=== PATIENT | male | born 1990 | race Caucasian/White ===

== ENCOUNTER 2018-10-29 07:08 | Day surgery (SDC) | payer OTHER ==
[2018-10-29] MEDS ORDERED: CEFAZOLIN 2 GM/50 ML (PMX) 50 ML IVPB (07:30)
[2018-10-29] MEDS: SOD CHLORIDE 0.9% 1,000 ML IV (08:08)
[2018-10-29 08:13] LABS: ADD MAN DIFF? NO
[2018-10-29 08:15] LABS: BASOPHIL # 0.1 10^3/ul (0.0-0.1); BASOPHILS % 0.7 % (0.0-2.0); EOSINOPHILS # 0.1 10^3/ul (0.0-0.5); EOSINOPHILS % 0.7 % (0.0-7.0); HEMATOCRIT 41.9 % (42.0-52.0); HEMOGLOBIN 14.4 g/dl (14.0-18.0); LYMPHOCYTES # 2.5 10^3/ul (0.8-2.9); LYMPHOCYTES % 33.6 % (15.0-51.0); MEAN CORPUSCULAR HEMOGLOBIN 31.9 pg (29.0-33.0); MEAN CORPUSCULAR HGB CONC 34.4 g/dl (32.0-37.0); MEAN CORPUSCULAR VOLUME 92.9 fl (82.0-101.0); MEAN PLATELET VOLUME 9.5 fl (7.4-10.4); MONOCYTE # 0.5 10^3/ul (0.3-0.9); MONOCYTES % 6.4 % (0.0-11.0); NEUTROPHIL # 4.3 10^3/ul (1.6-7.5); NEUTROPHILS % 58.3 % (39.0-77.0); PLATELET COUNT 253 10^3/UL (140-415); RED BLOOD COUNT 4.51 10^6/ul (4.70-6.10); RED CELL DISTRIBUTION WIDTH 12.3 % (11.5-14.5)
[2018-10-29 08:15] LABS: WHITE BLOOD COUNT 7.3 10^3/ul (4.8-10.8)
[2018-10-29 08:33] LABS: INR 0.89; PROTIME 12.2 Sec (11.9-14.9)
[2018-10-29 08:34] LABS: PARTIAL THROMBOPLASTIN TIME 33.7 Sec (23.0-35.0)
[2018-10-29 08:44] LABS: ANION GAP 9 (5-13); BLOOD UREA NITROGEN 14 mg/dl (7-20); CALCIUM 9.3 mg/dl (8.4-10.2); CARBON DIOXIDE 26 mmol/L (21-31); CHLORIDE 109 mmol/L (97-110); CREATININE 0.68 mg/dl (0.61-1.24); Estimated GFR > 60 mL/min (>60); GLUCOSE 101 mg/dl (70-220); SODIUM 144 mmol/L (135-144)
[2018-10-29] MEDS ORDERED: LIDOCAINE 1%/EPI (1:100,000) (MDV) 20 ML (09:29)
[2018-10-29] MEDS ORDERED: BUPIVACAINE 0.5% (SDV) 30 ML INJ (09:29)
[2018-10-29] MEDS ORDERED: HYDROmorphONE 1 MG/5 ML IV SYRINGE IV ×3 (09:30)
[2018-10-29] MEDS ORDERED: PROCHLORPERAZINE 10 MG INJ IV (09:30)
[2018-10-29] MEDS ORDERED: ONDANSETRON 4 MG INJ IV ×2 (09:30→10:30)
[2018-10-29] MEDS ORDERED: DIPHENHYDRAMINE 50 MG INJ IV (09:30)
[2018-10-29] MEDS ORDERED: OXYCODONE/ACETAMINOPHEN (5/325) TAB PO (09:30)
[2018-10-29] MEDS ORDERED: FENTAnyl 50 MCG/ML VIAL IV ×3 (09:30)
[2018-10-29] MEDS ORDERED: MEPERIDINE 25 MG INJ IV (09:30)
[2018-10-29] MEDS ORDERED: MIDAZOLAM 1 MG/ML 2 ML INJ (09:46)
[2018-10-29] MEDS ORDERED: FENTAnyl 50 MCG/ML VIAL (09:46)
[2018-10-29] MEDS ORDERED: LIDOCAINE 2% (SDV) 5 ML INJ (09:51)
[2018-10-29] MEDS ORDERED: PROPOFOL 20 ML (09:51)
[2018-10-29] MEDS ORDERED: ONDANSETRON 4 MG INJ (09:51)
[2018-10-29] MEDS ORDERED: DEXAMETHASONE 4 MG/ML 5 ML INJ (09:51)
[2018-10-29] MEDS ORDERED: CEFAZOLIN 1 GM INJ (09:51)
[2018-10-29] MEDS ORDERED: EPHEDrine SULFATE 50 MG/5 ML SYG (10:01)
[2018-10-29] MEDS: BUPIVACAINE 0.5%/EPI (SDV) 30 ML INJ (10:12)
[2018-10-29] MEDS ORDERED: IBUPROFEN 600 MG TAB PO (10:30)
== END 2018-10-29 11:53 | disposition home or self-care (01) ==
LOC: SDS 07:08
DX: D17.1 Benign lipomatous neoplasm of skin and subcutaneous tissue of trunk (principal)
CPT/HCPCS: 21932; 80048; 85025; 85610; 85730; 88307